=== PATIENT | female | born 1960 | race Two or more races ===

== ENCOUNTER 2024-10-01 06:02 | Emergency (ER) | payer OTHER ==
[~2024-10-01] VITALS: Ht 157.5 cm; Wt 68.2 kg
[2024-10-01 06:09] VITALS: BP 160/87; PULSE 89; RESP 16; TEMP 98.6; O2SAT 98
[2024-10-01] MEDS: LIDOCAINE 1% 10 ML VIAL SQ ONE (06:30)
[2024-10-01] MEDS: POVIDONE-IODINE 10% 120 ML SOLUTION TP ONE (06:30)
== END 2024-10-01 07:10 | disposition home or self-care (01) ==
LOC: EMS 06:03
DX: L02.412 Cutaneous abscess of left axilla (principal); M19.90 Unspecified osteoarthritis, unspecified site
CPT/HCPCS: 10060; 99282; J3490

== ENCOUNTER 2024-10-03 13:19 | Emergency (ER) | payer OTHER ==
[~2024-10-03] VITALS: Ht 154.9 cm; Wt 72.7 kg
[2024-10-03 13:25] VITALS: BP 161/78; PULSE 76; RESP 18; TEMP 98.7; O2SAT 99
[2024-10-03] MEDS ORDERED: CEPH500C3 PO (13:26)
[2024-10-03] MEDS ORDERED: BACTDSB PO (13:26)
== END 2024-10-03 15:32 | disposition home or self-care (01) ==
LOC: EMS 13:20
DX: Z48.817 Encounter for surgical aftercare following surgery on the skin and subcutaneous tissue (principal); I10 Essential (primary) hypertension; Z79.2 Long term (current) use of antibiotics
CPT/HCPCS: 99281; Z7502